=== PATIENT | female | born 1985 | race Caucasian/White ===

== ENCOUNTER → 2023-03-22 15:40 | Outpatient (BNVA) | payer BC, SELFPAY | PROVIDERS: PCP Internal Medicine; Visit Provider Neurological Surgery ==

== ENCOUNTER 2023-05-03 14:05 | Outpatient (AMB) | payer BC, SELFPAY ==
--- NOTE | 2023-05-03 14:16 | MHC.OFFVIS ---
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 States pain started about 4 months ago, she was performing numberous finger sticks at work and started to develop pain in the thumb. She was seen in the ED due to the pain and swelling, due to her h/o Carpal tunnel and neck surgery, they felt it was related to the carpal tunnel. She is aware she has CTS, which she states is constant numbness, but does not wish to proceed with surgery at this time. She states it is painful when she tries to move her thumb, she also has difficulty with grasping objects. She has to modify her activity at work due to the pain. Allergies NSAIDS (Non-Steroidal Anti-Inflamma Allergy (Intermediate, Verified 05/03/23 14:17) Anaphylaxis Penicillins [PENICILLINS] Allergy (Unknown, Unverified 06/25/20 16:53) UNKNOWN HPI COST ESTIMATING CLERK- CTS, bilateral upper limbs HPI Details Fátima 37 yr old female presents today for her left wrist pain. States pain started about 4 months ago, she was performing numberous finger sticks at work and started to develop pain in the thumb. She was seen in the ED due to the pain and swelling, due to her h/o Carpal tunnel and neck surgery, they felt it was related to the carpal tunnel. She is aware she has CTS, which she states is constant numbness, but does not wish to proceed with surgery at this time. She states it is painful when she tries to move her thumb, she also has difficulty with grasping objects. She has to modify her activity at work due to the pain. 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 No swelling. Mild tenderness over the radial styloid. Positive Tanvir?s. No pain with CMC grind. is able to make a full fist and fully extend all digits. NVI. Bilateral wrist: Normal to inspection. Tenderness over the carpal canal. Numbness and tingling over the median nerve distribution of the right hand. Able to make a full fist and fully extend all fingers. Positive Tinel's. Assessment & Plan Assessment & Plan (1) Bilateral carpal tunnel syndrome: Code(s): G56.03 - Carpal tunnel syndrome, bilateral upper limbs (2) De Quervain's tenosynovitis, left: Code(s): M65.4 - Radial styloid tenosynovitis [de Quervain] Plan We discussed options which include OT, NSAIDs and injections. The patient will defer on the injection today and proceed with OT and NSAIDs. She was also placed in an off the shelf thumb spica wrist splint which she will wear while sleeping and with any type of lifting activities. If symptoms persist, the patient will contact me for an injection, otherwise, PRN. Orders: Orders OT Evaluation and Treatment Today G56.03 - Carpal tunnel syndrome, bilateral upper limbs, M65.4 - Radial styloid tenosynovitis [de Quervain] Patient Instructions: Scribed for Jae Melvin PA-C, by [facility] director, on 05/03/2023 at 2:00 PM EST. I, Jae Melvin PA-C, have personally reviewed and agree with the information entered by the scribe. Coding Level of Care Code New Pt Level 3 (02171) Diagnoses Bilateral carpal tunnel syndrome G56.03 De Quervain's tenosynovitis, left M65.4
[2023-05-03 14:17] VITALS: BMI 25.2
== END 2023-05-03 14:42 | disposition home or self-care (01) ==
PROVIDERS: PCP Internal Medicine; Visit Provider Physician Assistant
DX: G56.03 Carpal tunnel syndrome, bilateral upper limbs (principal); M65.4 Radial styloid tenosynovitis [de Quervain]
CPT/HCPCS: 99203

== ENCOUNTER → 2023-05-03 14:05 | Outpatient (BNVA) | payer BC, SELFPAY | PROVIDERS: PCP Internal Medicine; Visit Provider Physician Assistant ==

== ENCOUNTER 2023-08-03 13:46 | Outpatient (AMB) | payer BC, SELFPAY ==
--- NOTE | 2023-08-03 13:57 | MHC.OFFVIS ---
Intake Vital Signs 08/03/23 13:58 Height 5 ft 2 in Weight 138 lb BMI 25.2 Intake Visit Reasons: ov- Left wrist tendonitis Intake Note: Fátima a 38 year old female for a follow up of left wrist. Patient reports that she was not able to start OT however she did at home exercises which increased her wrist pain. States improvement in her thumb ROM. Her PCP ordered an MRI that was done at Allergies NSAIDS (Non-Steroidal Anti-Inflamma Allergy (Intermediate, Verified 05/03/23 14:17) Anaphylaxis Penicillins [PENICILLINS] Allergy (Unknown, Unverified 06/25/20 16:53) UNKNOWN HPI ov- Left wrist tendonitis HPI Details 38-year-old female who returns to the office today for a follow-up of left wrist pain. She states she has improvement in ROM of her thumb but she continues to have pain in her left wrist. She was not able to start occupational therapy but she continues to do exercises at home. She was also seen by her PCP who ordered an MRI of her wrist. [facility] Medical History Acute migraine Anxiety Nerve pain Social History Current occupational status: employed Current occupation: center supervisor assembly department/ ambidextrous Review of Systems Const All systems reviewed & are unremarkable except as noted in HPI and below Physical Exam Vital Signs: BMI result Body Mass Index 25.2 Extrem Other: Left wrist: Without deformity. No swelling. Mild tenderness over the radial styloid. Positive Tanvir?s. No pain with CMC grind. Is able to make a full fist and fully extend all digits. NVI. Office Procedures Casting/Splints 81947-Nzht/Wrist Cast Application Procedure code (CPT) selection complete Results Reviewed Results Reviewed: 08/03/23 14:13 Lidocaine HCl 1 % [Xylocaine 1 %] 2 ml .ROUTE .STK-MED ONE dexAMETHasone sod phosphate [Decadron] 4 mg .ROUTE .STK-MED ONE MRI left wrist: 1. Flexor tensynovitis of the 1st dorsal compartnet 2. TFCC tear Assessment & Plan Assessment & Plan (1) De Quervain's tenosynovitis, left: Code(s): M65.4 - Radial styloid tenosynovitis [de Quervain] (2) Bilateral carpal tunnel syndrome: Code(s): G56.03 - Carpal tunnel syndrome, bilateral upper limbs Plan We discussed options today which include steroid injection. They did consent to move forward with the left wrist injection, which was tolerated well. I recommended rest, ice and elevation and OTC anti-inflammatories PRN for discomfort. She was also placed in a short arm cast to help immobilize the wrist and allow it to rest. [place] 2 [place] and will follow up with an orthopedic surgeon at that time to have the cast removed and establish care for further evaluation and treatment given her MRI findings. Patient Instructions: Scribed for Jae Melvin PA-C, by Fabiano Ball district medical examiner, on 08/03/2023. I, Jae Melvin PA-C, have personally reviewed and agree with the information entered by the scribe. Coding Level of Care Code Est Pt Level 3 (52466) Diagnoses De Quervain's tenosynovitis, left M65.4 Bilateral carpal tunnel syndrome G56.03 CPT Codes Casting - CPT: 98634-Mmil/Wrist Cast Application ([id number])
[2023-08-03 13:58] VITALS: BMI 25.2
== END 2023-08-03 15:07 | disposition home or self-care (01) ==
PROVIDERS: Visit Provider Physician Assistant
DX: M65.4 Radial styloid tenosynovitis [de Quervain] (principal); G56.03 Carpal tunnel syndrome, bilateral upper limbs
CPT/HCPCS: 20605; 29085; 99213

== ENCOUNTER → 2023-08-03 13:46 | Outpatient (BNVA) | payer BC, SELFPAY | PROVIDERS: Visit Provider Physician Assistant | DX: M65.4 Radial styloid tenosynovitis [de Quervain] (principal); G56.03 Carpal tunnel syndrome, bilateral upper limbs | CPT/HCPCS: 20605; 29085; J1100 ==